=== PATIENT | female | born 1955 | race Caucasian/White ===

== ENCOUNTER 2020-04-27 15:41 | Outpatient (CLI) | payer MEDICARE, SELFPAY ==
--- NOTE | ~2020-04-27 | MM_ITS ---
EXAMINATION: MM screening luz BI w ade HISTORY: Screening mammogram TECHNIQUE: Craniocaudal and mediolateral oblique 3-D tomosynthesis images were obtained and synthetic 2-D images were generated. Bilateral rotated lateral cc views. CAD analysis was submitted and interp reted. COMPARISON: 04/06/2019, 11/27/2017, 10/02/2016 bilateral digital screening mammogram examinations BREAST PARENCHYMAL COMPOSITION: There are scattered areas of fibroglandular density. FINDINGS: There is no evidence of suspicious mass, calcification, or architectural distortion to sugg est malignancy in either breast. There has been no suspicious interval change. IMPRESSION: 1. No mammographic evidence of malignancy. 2. Recommend routine screening mammography in one year. BI-RADS Category 1: Negative Reviewed, dictated and finalized at location A.
== END 2020-04-27 15:42 | disposition home or self-care (01) ==
PROVIDERS: PCP Family Medicine; Visit Provider Family Medicine
DX: Z12.31 Encounter for screening mammogram for malignant neoplasm of breast (principal)
CPT/HCPCS: 77063; 77067

== ENCOUNTER 2020-05-03 12:40 | Outpatient (CLI) | payer MEDICARE, SELFPAY ==
--- NOTE | ~2020-05-03 | DEXA_ITS ---
Bone Density Report Name: Marisa Jaquez Age: 65 Sex: Female Ethnicity: White Date of : 1955 Indication: postmenopausal; Referring Provider: Sanam Wall Study: Bone densitometry was performed. Exam Date: May 03, 2020 Accession number: [id number] Bone Density: Region BMD T-score Z-score Classification AP Spine (L1-L4) 1.222 1.6 3.5 Normal Femoral Neck (Left) 0.734 -1.0 0.6 Normal Total Hip (Left) 0.921 -0.2 1.2 Normal Total Hip Bilateral Avg 0.893 -0.4 0.9 Normal Femoral Neck (Right) 0.705 -1.3 0.3 Osteopenia Total Hip (Right) 0.864 -0.6 0.7 Normal World Health Organization criteria for BMD impression classify patients as: Normal (T-score at or above -1.0), Osteopenia (T-score between -1.0 and -2.5), or Osteoporosis (T-score at or below -2.5). 10-year Fracture Risk(1): Major Osteoporotic Fracture 8.7% Hip Fracture 0.9% Reported Risk Factors: [place] (), Neck BMD=0.705, BMI=29.7 (1) FRAX(R) Version 3.08. Fracture probability calculated for an untreated patient. Fracture probability may be lower if the patient has received treatment. Previous Exams: Region Exam Age BMD T-score BMD Change BMD Change Date g/cm2 vs Baseline vs Previous AP Spine(L1-L4) 05/03/2020 65 1.222 1.6 -0.069(-5.4%)# -0.056(-4.4%)# 03/12/2013 57 1.279 2.1 -0.013(-1.0%)# -0.090(-6.6%)# 07/01/2009 54 1.368 2.9 0.077(5.9%)* 0.052(3.9%)* 02/22/2006 50 1.317 2.5 0.025(1.9%)* 0.025(1.9%)* 02/12/2002 46 1.292 2.2 Total Hip(Left) 05/03/2020 65 0.921 -0.2 -0.086(-8.5%)# -0.066(-6.7%)# 03/12/2013 57 0.986 0.4 -0.020(-2.0%)# -0.034(-3.3%)# 07/01/2009 54 1.020 0.6 0.014(1.4%) -0.004(-0.4%) 02/22/2006 50 1.024 0.7 0.018(1.8%) 0.018(1.8%) 02/12/2002 46 1.006 0.5 Total Hip(Right) 05/03/2020 65 0.864 -0.6 -0.128(-12.9%) -0.050(-5.4%)# 03/12/2013 57 0.914 -0.2 -0.078(-7.9%)# -0.114(-11.1%) 07/01/2009 54 1.028 0.7 0.035(3.6%)* 0.026(2.6%) 02/22/2006 50 1.002 0.5 0.010(1.0%) 0.010(1.0%) 02/12/2002 46 0.992 0.4 *Denotes significance at 95% confidence level, LSC for AP Spine = 0.022 g/cm2, LSC for Total Hip = 0.027 g/cm2 Clinical Information Provided by Patient: Has used the following medications: Vitamin D, Calcium Patient maximum height was 67 Menopause Age: 53 Does not regularly consume dairy products Onset of menses at age 14 Number of children 2
== END 2020-05-03 12:41 | disposition home or self-care (01) ==
LOC: ANHIMG 12:42
PROVIDERS: PCP Family Medicine; Visit Provider Physician Assistant
DX: Z78.0 Asymptomatic menopausal state (principal); M85.851 Other specified disorders of bone density and structure, right thigh
CPT/HCPCS: 77080

== ENCOUNTER 2021-08-03 08:24 | Outpatient (CLI) | payer MEDICARE, SELFPAY ==
--- NOTE | ~2021-08-03 | MR_ITS ---
EXAMINATION: MR brain/brain stem wo/w con DATE: 08/03/2021 10:19 INDICATION: Right arm weakness. Right-sided hearing loss. TECHNIQUE: Magnetic resonance imaging (MRI) of the brain and brainstem was performed without and with 15 mL MultiHance intravenous co Sequences included sagittal and axial T1-weighted FSE, axial diffusi on-weighted FS EPI, axial T2*-weighted GRE, axial T2-weighted FLAIR Propeller, and axial T2-weighted Propeller. Postcontrast sequences included axial and coronal T1-weighted FSE. Apparent diffusion coef ficient (ADC) maps were created. COMPARISON: None. FINDINGS: There are scattered areas of nonspecific increased T2-weighted signal intensity in the cere bral white matter, which is within normal limits for the patient's age. 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 There is no intracranial hemorrhage, acute infarction, or abnormal intracranial m ass lesion. The ventricles are normal in size. There are bilateral mastoid effusions. There is an eff usion of the right petrous apex. The orbits are normal. There is mucosal thickening in the paranasal sinuses. IMPRESSION: 1. 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 2. Bilateral mastoid effusions. Effusion of the right petrous apex. Reviewed, dictated and finalized at location A.
[2021-08-03 09:55] LABS: Estimated Glomerular Filt Rate 49
== END 2021-08-03 08:25 | disposition home or self-care (01) ==
PROVIDERS: PCP Family Medicine; Visit Provider Physician Assistant
DX: R53.1 Weakness (principal); H74.8X3 Other specified disorders of middle ear and mastoid, bilateral; Z86.73 Personal history of transient ischemic attack (TIA), and cerebral infarction without residual deficits
CPT/HCPCS: 70553; A9577

== ENCOUNTER 2021-08-13 12:44 | Outpatient (CLI) | payer MEDICARE, SELFPAY | END 2021-08-13 12:45 | disposition home or self-care (01) | LOC: ANHAUDASC 12:45 | PROVIDERS: PCP Family Medicine; Visit Provider Otolaryngology | DX: H93.13 Tinnitus, bilateral (principal); H90.3 Sensorineural hearing loss, bilateral | CPT/HCPCS: 92557; 92567 ==

== ENCOUNTER 2021-08-27 08:53 | Outpatient (CLI) | payer MEDICARE, SELFPAY ==
--- NOTE | ~2021-08-27 | MM_ITS ---
EXAMINATION: MM screening [facility] BI w ade HISTORY: Screening mammogram TECHNIQUE: Craniocaudal and mediolateral oblique 3-D tomosynthesis images were obtained and synthetic 2-D images were generated. CAD analysis was submitted and interpreted. COMPARISON: 04/27/2020, 04/06/2019, 11/27/2017 BREAST PARENCHYMAL COMPOSITION: There are scattered areas of fibroglandular density. FINDINGS: There is no evidence of suspicious mass, calcification, or architectural distortion to sugg est malignancy in either breast. There has been no suspicious interval change. IMPRESSION: 1. No mammographic evidence of malignancy. 2. Recommend routine screening mammography in one year. BI-RADS Category 1: Negative Reviewed, dictated and finalized at location A.
== END 2021-08-27 08:54 | disposition home or self-care (01) ==
LOC: ANHIMG 08:55
PROVIDERS: PCP Family Medicine; Visit Provider Physician Assistant
DX: Z12.31 Encounter for screening mammogram for malignant neoplasm of breast (principal)
CPT/HCPCS: 77063; 77067

== ENCOUNTER 2022-05-26 18:14 | Emergency (ER) | payer MEDICARE, SELFPAY ==
[2022-05-26 18:22] VITALS: BP 126/84; PULSE 72; RESP 18; TEMP 37.4; O2SAT 99
[2022-05-26 18:26] VITALS: BP 126/84; PULSE 72; RESP 18; TEMP 37.4; O2SAT 99
--- NOTE | 2022-05-26 18:40 | ED.GENADULT ---
HPI - General Adult General Chief complaint: Eye Problems Stated complaint: Lt Eye Irritation History of Present Illness HPI narrative: Patient is a 67-year-old female who presents to the [facility] via POV for evaluation of a left eye problem that began today. She reports erythema and goopy drainage. Denies using OTC meds for symptoms. She does not identify alleviating or aggravating factors. Patient does not wear any form of corrective lenses. Denies known exposure to sick contacts Related Data Home Medications Medication Instructions Recorded Confirmed cholecalciferol (vitamin D3) 50 50 mcg PO BID 12/25/21 05/26/22 mcg (2,000 unit) capsule Allergies Allergy/AdvReac Type Severity Reaction Status Date / Time No Known Allergies Allergy Verified 05/26/22 18:26 Review of Systems Review of Systems: Pertinent negatives injury, fever, chills, sweats, malaise, headache, ear pain/drainage, rhinorrhea, sinus problems, lymphadenopathy, vision changes, dry eyes, eye pain, foreign body sensation, photophobia, chest pain, heart palpitations/murmurs, cough, and shortness of breath. PMFSH Past Medical History Medical History (Updated 05/26/22 @ 18:43 by DANIEL Sutton, ) Hepatitis C antibody test negative (05/01/20) Hyperlipidemia Hypertension Surgical History Surgical History Hx of cholecystectomy (~1983) Family History Family History Father Diabetes mellitus, Onset Age: 54 Family history of malignant neoplasm of brain Mother Patient's mother is , Onset Age: 55 Diabetes mellitus Grandparent Diabetes mellitus Social History Social History Smoking status: Never smoker Alcohol intake: never Comments I have reviewed and agree with the patient's past medical, surgical, social, and family hx as documented by the RN. There is no relevant family history pertinent to the presenting complaint. Exam Narrative: GENERAL: Well-appearing, well-nourished, and in no acute distress. HEAD: Normocephalic, atraumatic. No sinus tenderness or facial swelling appreciated. EYES: PERRLA and EOMI. No evidence of swelling. Periorbital are is without erythema, swelling, pain, and warmth. Left upper and lower eyelids are mildly edematous. Right eyelids and lashes are normal. Bilateral sclera are injected. Left conjunctiva with moderate erythema and mucopurulent discharge. ENT: Nares clear, no rhinorrhea or epistaxis. Bilateral turbinates without erythema/ swelling. Mucous membranes moist and pink. Uvula is midline without erythema and swelling. No evidence of petechial rash, cobblestoning, lesions, ulcers, erythema, swelling, exudates, peritonsillar abscess, tenting, or drooling. Breath odor and voice normal. NECK: Supple. No Lymphadenopathy or nuchal rigidity appreciated. CHEST: Bilateral lung farrell are clear to auscultation. No respiratory distress. No evidence of cough or pleuritic cp upon examination. HEART: Regular rate and rhythm. No murmur, gallop, or rub heard. EXTREMITIES: Normal range of motion. No edema. SKIN: Warm, dry, no rash. NEURO: No focal deficits. Alert and oriented x3. Patient denies trauma, surgery, starvation, fatty foods, inadequate fluid intake, alcohol consumption, thiazide and loop diuretics, low-dose aspirin, allpurinol, and uricosuric agents. Pertinent negatives: fever, rash, numbness, tingling, loss of sensation, deformity, decreased ROM, weakness, difficulty with gait, nausea, vomiting, lymphadenopathy, sob, chest pain, heart palpitations, and heart murmurs. Course Course Level of Care: Express Care Visit Vital Signs Vital signs: Vital Signs Temperature 99.3 F 05/26/22 18: Pulse Rate 72 05/26/22 18: Respiratory Rate 18 05/26/22 18: Blood Pressure 126/84 05/26/22 18:22
== END 2022-05-26 18:38 | disposition home or self-care (01) ==
PROVIDERS: Emergency Provider Nurse Practitioner Family; PCP Family Medicine
DX: H10.32 Unspecified acute conjunctivitis, left eye (principal); E78.5 Hyperlipidemia, unspecified; I10 Essential (primary) hypertension
CPT/HCPCS: 99213; G0463

== ENCOUNTER 2022-08-02 12:28 | Outpatient (CLI) | payer MEDICARE, SELFPAY ==
--- NOTE | ~2022-08-02 | DEXA_ITS ---
Bone Density Report Name: AMBER JOHN Age: 67 Sex: Female Ethnicity: White Date of : 1955 Indication: postmenopausal; screening for osteoporosis; height loss; Referring Provider: ALEXANDRA YU Study: Bone densitometry was performed. Exam Date: August 02, 2022 Accession number: [id number] Bone Density: Region BMD T-score Z-score Classification AP Spine(L1-L4) 1.232 1.7 3.7 Normal Femoral Neck (Left) 0.737 -1.0 0.7 Normal Total Hip (Left) 0.906 -0.3 1.2 Normal Femoral Neck (Right) 0.736 -1.0 0.7 Normal Total Hip (Right) 0.817 -1.0 0.4 Normal Total Hip Mean 0.862 -0.7 0.8 Normal World Health Organization criteria for BMD impression classify patients as: Normal (T-score at or above -1.0), Osteopenia (T-score between -1.0 and -2.5), or Osteoporosis (T-score at or below -2.5). 10-year Fracture Risk: FRAX not reported because: All T-scores for Spine Total, Hip Total, Femoral Neck at or above -1.0 Previous Exams: Region Exam Age BMD T-score BMD Change BMD Change Date g/cm2 vs Baseline vs Previous AP Spine (L1-L4) 08/02/2022 67 1.232 1.7 0.010 (0.8%) 0.010 (0.8%) 05/03/2020 65 1.222 1.6 Total Hip(Left) 08/02/2022 67 0.906 -0.3 -0.015 (-1.6%) -0.015 (-1.6%) 05/03/2020 65 0.921 -0.2 Total Hip(Right) 08/02/2022 67 0.817 -1.0 -0.047 (-5.4%) -0.047 (-5.4%) 05/03/2020 65 0.864 -0.6 *Denotes significance at 95% confidence level, LSC for AP Spine = 0.022 g/cm2, LSC for Total Hip = 0.027 g/cm2 Clinical Information Provided by Patient: Has used the following medications: Vitamin D, Calcium Patient maximum height was 68 Menopause Age: 53 Onset of menses at age 14 Number of children 2 Impression: The patient has normal bone mass. The BMD for the Total Hip(Right) decreased, changing by -5.4% since the last DXA exam. Discussion: BONE DENSITY IS ABOVE THE MINIMUM DESIRABLE LEVEL AT ALL SKELETAL SITES TESTED. This patient?s bone mineral density is above the minimum desirable level (T-score -1.0 or better) at all sites measured. The patient should follow a healthful lifestyle (good nutrition with adequate calcium and vitamin D, and appropriate weight-bearing exercise). Follow-Up: Consider repeating this study in 3 to 4 years to reassess this patient's status, or sooner if there is some new clinical indication. Reported by: GOGO on 08/02/2022 12:58:00 PM.
== END 2022-08-02 12:29 | disposition home or self-care (01) ==
LOC: ANHIMG 12:29
PROVIDERS: PCP Family Medicine; Visit Provider Family Medicine
DX: Z78.0 Asymptomatic menopausal state (principal)
CPT/HCPCS: 77080

== ENCOUNTER → 2023-02-27 09:48 | Outpatient (CLI) | payer MEDICARE, SELFPAY ==
--- NOTE | ~2023-02-27 | XR_ITS ---
EXAMINATION: XR foot RT min 3V DATE: 02/27/2023 09:57 INDICATION: Painful lump of the foot TECHNIQUE: Dorsoplantar, lateral, and 2 oblique views of the right foot were obtained. COMPARISON: None. FINDINGS: Bone alignment is normal. There is no fracture. 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 A posterior calcaneal enthesophyte is noted. The soft tissues are unremarka ble. IMPRESSION: 1. Posterior calcaneal enthesophyte. No acute osseous abnormality. Reviewed, dictated and finalized at location L.
== END ==
PROVIDERS: PCP Family Medicine; Visit Provider Family Medicine
DX: M79.671 Pain in right foot (principal); M77.31 Calcaneal spur, right foot
CPT/HCPCS: 73630

== ENCOUNTER 2023-06-02 07:42 | Outpatient (CLI) | payer MEDICARE, SELFPAY | END 2023-06-02 07:43 | disposition home or self-care (01) | LOC: ANHAUDASC 07:44 | PROVIDERS: PCP Family Medicine; Visit Provider Nurse Practitioner | DX: H90.3 Sensorineural hearing loss, bilateral (principal) | CPT/HCPCS: 92557; 92567 ==

== ENCOUNTER 2023-08-04 08:32 | Outpatient (CLI) | payer MEDICARE, SELFPAY ==
--- NOTE | ~2023-08-04 | MM_ITS ---
EXAMINATION: MM screening luz BI w ade HISTORY: Screening mammogram TECHNIQUE: Craniocaudal and mediolateral oblique 3-D tomosynthesis images were obtained and synthetic 2-D images were generated. CAD analysis was submitted and interpreted. COMPARISON: 08/27/2021, 04/27/2020, 04/06/2019 bilateral screening mammogram examinations BREAST PARENCHYMAL COMPOSITION: There are scattered areas of fibroglandular density. FINDINGS: There is no evidence of suspicious mass, calcification, or architectural distortion to sugg est malignancy in either breast. There has been no suspicious interval change. IMPRESSION: 1. No mammographic evidence of malignancy. 2. Recommend routine screening mammography in one year. BI-RADS Category 1: Negative Reviewed, dictated and finalized at location A.
== END 2023-08-04 08:33 | disposition home or self-care (01) ==
PROVIDERS: PCP Family Medicine; Visit Provider Family Medicine
DX: Z12.31 Encounter for screening mammogram for malignant neoplasm of breast (principal)
CPT/HCPCS: 77063; 77067

== ENCOUNTER 2023-08-26 10:17 | Outpatient (CLI) | payer MEDICARE, SELFPAY ==
[2023-08-26 10:57] LABS: Appearance Urine Clear (Clear); Bacteria Urine None Seen /hpf; Bilirubin Urine Negative (Negative); Blood Urine Negative (Negative); Color Urine Yellow (Yellow); Glucose Urine UA Negative (Negative); Ketones Urine Negative (Negative); Leukocyte Esterase Ur 1+ LEU/UL (Negative); Need Manual Microscopic Reviewed; Nitrate Urine Negative (Negative); Non Pathogenic Casts 0-2; Protein Urine Negative (Negative); RBC Urine 0-2 /hpf (0-2); Specific Grav Ur 1.012 (1.001-1.035); Squamous Epithelial Cell Urine Occasional /hpf (Few); Urobilinogen Urine 0.2 mg/dL (<2.0); WBC Urine 0-5 /hpf; pH Urine 7.5 (5.0-9.0)
[2023-08-26 10:58] LABS: Add Urine Microscopic? YES
--- NOTE | 2023-08-26 11:26 | ECG_ITS ---
Measurements Intervals [place] Rate: 49 P: 32 UT: 177 QRS: -3 QRSD: 91 T: 35 QT: 451 QTc: 411 Interpretive Statements SINUS BRADYCARDIA COMPARED TO ECG 06/08/2019 15:57:04 SINUS BRADYCARDIA NOW PRESENT Electronically Signed On 08-26-2023 12:44:26 CDT by Reji Hennessy M.D.
== END 2023-08-26 10:18 | disposition home or self-care (01) ==
PROVIDERS: PCP Family Medicine; Visit Provider Orthopaedic Surgery
DX: M17.11 Unilateral primary osteoarthritis, right knee (principal); I12.9 Hypertensive chronic kidney disease with stage 1 through stage 4 chronic kidney disease, or unspecified chronic kidney disease; N18.30 Chronic kidney disease, stage 3 unspecified
CPT/HCPCS: 81001; 93005

== ENCOUNTER 2023-09-04 09:51 | Outpatient (CLI) | payer MEDICARE, SELFPAY ==
[2023-09-04 11:16] LABS: Urine Cotinine NEGATIVE
[2023-09-04 11:23] LABS: INR 1.1; Prothrombin Time 14.2 Seconds (11.1-14.7)
[2023-09-04 11:24] LABS: Partial Thromboplastin Time 28.3 SECONDS (22.3-36.8)
[2023-09-04 11:41] LABS: Hemoglobin A1C 5.2 % (<5.7)
== END 2023-09-04 09:52 | disposition home or self-care (01) ==
LOC: ANHSURGERY 09:55
PROVIDERS: PCP Family Medicine; Visit Provider Orthopaedic Surgery
DX: M17.11 Unilateral primary osteoarthritis, right knee (principal); Z01.818 Encounter for other preprocedural examination
CPT/HCPCS: 80307; 83036; 85610; 85730; 86850; 86900; 86901; 87081

== ENCOUNTER 2023-09-17 01:21 | Day surgery (SDC) | payer MEDICARE, SELFPAY ==
[2023-09-04 10:01] VITALS: BMI 26.9
--- NOTE | 2023-09-04 10:17 | PC.NURSE ---
Report to the Outpatient Waiting Room, entrance under the green pavilion located off [facility], at time _0830 on date __09/17/23 . Planned Procedure Time: __1030 . Time changes happen often and if your time is changed the preop area will call you the afternoon before. - You and your visitor will be asked to self-screen and do not enter if you have any COVID symptoms. - A mask is optional within the hospital at this time. Patients may have clear liquids (water, carbonated beverages, clear teas, apple juice) until 3 hours prior to surgery with a maximum of 20 ounces. - No food from midnight until time of surgery - Infants may have breast milk until 4 hours before surgery, formula 6 hours prior to surgery. - Children will be allowed to drink immediately following surgery. If applicable, please bring a bottle or sippy cup to assist with drinking. Juice, water, soda, and popsicles are readily available. For infants on formula, please bring formula the day of surgery. Pacifiers are allowed. Take the following medications with a SIP of water the morning of surgery: ____AMLODIPINE,ESCITALOPRAM DO NOT STOP ANY OF YOUR OTHER PRESCRIPTION MEDICATIONS PRIOR TO SURGERY ?EXCEPT THE FOLLOWING Medications to discontinue per physician ____NAPROXEN PER DR BURNS, ALL VITAMINS AND SUPPLEMENTS 3 DAYS PRE OP LAST DOSE 09/13/23__ Please no make-up, nail irish, hairspray, perfume, deodorant, or body powder the day of surgery. No jewelry (including any body piercings) or valuables the day of surgery, leave them at home. Please take a shower or bath the night before, or the morning of, surgery with an antibacterial soap. Wear comfortable, loose fitting clothing. Children are encouraged to wear pajamas. - Jewelry must be removed prior to entering the operating room. Rings and piercings that are not removed may be cut off. - The hospital will not accept responsibility for valuables. - Please leave all valuables, including medications, at home the day of surgery. If you are going home after surgery, a licensed deliver driver must drive you home. - NO public transportation without another adult if you receive anesthesia. - We recommend that an adult stay with you for 24 hours following discharge. - We also recommend that you do not drive, make important decision, drink alcoholic beverages, or take any drugs that were not prescribed by your health care provider for at least 24 hours after your discharge time. Follow any additional instructions given to you from your surgeon. If you or anyone in your household have experienced Covid symptoms in the past week, please notify your surgeon or the nurse liaison at the phone number below for possible testing. VERBAL AND WRITTEN instructions given to ___PATIENT and asked if any additional questions and then verbalized understanding. Patient advised to call surgeon office or pre surgery nurse liaison [phone] if any additional questions.
[2023-09-04 10:36] VITALS: BP 133/77; PULSE 60; RESP 18; TEMP 36.6; O2SAT 99
--- NOTE | 2023-09-16 13:28 | WPDANESEPPF ---
Anes - Initial Pre Proc Eval Procedure: Operation Date: 09/17/23 10:30 Proposed Procedures p Right Total Knee Arthroplasty - Rolo Villa MD Date/Time: 09/16/23 13:28 Surgeon: Rolo Villa MD Pre Op Diagnosis: right knee DJD Patient Data Age: 68 Gender: F Height: 1.7 m Weight: 78 kg Last Vital Signs Temp 36.6 C 09/04/23 10:36 Pulse 60 09/04/23 10:36 Resp 18 09/04/23 10:36 BP 133/77 09/04/23 10:36 Pulse Ox 99 09/04/23 10:36 O2 Del Method Room Air 09/04/23 10:36 Allergies Allergy/AdvReac Type Severity Reaction Status Date / Time No Known Allergies Allergy Verified 09/17/23 09:26 Home Medications Medication Instructions Recorded Confirmed Type atorvastatin 10 mg tablet See Rx Instructions .Route 05/24/22 09/17/23 Rx .COMPLEX #90 tabs cholecalciferol (vitamin D3) 50 50 mcg PO DAILY 07/01/22 09/17/23 History mcg (2,000 unit) capsule amlodipine 2.5 mg tablet 2.5 mg PO DAILY #90 tabs 08/07/22 09/17/23 Rx escitalopram oxalate 20 mg tablet 20 mg PO DAILY #90 tabs 03/27/23 09/17/23 Rx bisoprolol 10 See Rx Instructions .Route 05/13/23 09/17/23 Rx mg-hydrochlorothiazide 6.25 mg .COMPLEX #90 tabs tablet naproxen 500 mg tablet See Rx Instructions .Route 07/25/23 09/17/23 Rx .COMPLEX #60 tabs latanoprost 0.005 % eye drops 1 drp EACH EYE HS 09/03/23 09/17/23 History calcium carb-Ca gluc 500 mg 1 tablet PO DAILY 09/04/23 09/17/23 History calcium-magnesium ox-Mg gluc 250 mg tablet (Calcium Magnesium) chlorhexidine gluconate 4 % 1 applic topical DAILY #237 mL 09/08/23 09/17/23 Rx topical liquid (Hibiclens) Patient hx anesthesia problems: none Family hx anesthesia problems: none Results Review: All pre-operative results and documents have been reviewed as part of the pre-operative evaluation. [facility] Past Medical History Medical History (Updated 09/16/23 @ 13:29 by Chase Amin DO) Chronic kidney disease, stage 3 (moderate) Glaucoma Hyperlipidemia Hypertension Surgical History Surgical History (Updated 09/08/23 @ 10:42 by Michelle Martinez [facility]) History of 2 sections History of knee surgery Hx of cholecystectomy (~1983) Family History Family History Father Diabetes mellitus, Onset Age: 54 Family history of malignant neoplasm of brain Mother Patient's mother is , Onset Age: 55 Diabetes mellitus Grandparent Diabetes mellitus Social History Social History (Updated 09/08/23 @ 10:43 by Michelle Martinez [facility]) Smoking status: Never smoker Additional smoking assessment comments: DENIES ANY FORM OF TOBACCO USE Alcohol intake: current Drinks per week: 1 Lack of Transportation: No Lack of Food: Never True Current Housing: I Have Housing Concerned About Future Housing: No Difficulty Paying Gas/Electric Bills: No Difficulty Paying for Meds: No Currently Unemployed: No Education: Bachelor's Degree Difficulty w/ Childcare or Family Care: No Living arrangements: with family Occupation/Education: retired Gender identity (if verbalized by the patient): Female Spiritual care concerns: No Anes - Eval Final PreProcedure Day of Procedure 09/16/23 13:28 Patient weight: overweight Heart: regular rate and rhythm Lungs: clear to auscultation Airway: Mallampati scale class II Neurological: alert and oriented Last oral intake: >/= 8 hours ASA classification: III Emergent: no Anesthetic plan: proceed Anesthesia type and monitoring: general LMA and standard monitoring Results Review: All pre-operative results and documents have been reviewed as part of the pre-operative evaluation. Informed Consent: The patient's anesthetic plan and its attendant risks and benefits were discussed with the patient/family/POA. Questions were solicited and answers provided to the satisfaction of the patient/family/POA.
[2023-09-17] VITALS (16 sets, daily range): BP systolic 117–176; BP diastolic 64–96; PULSE 58–90; RESP 12–20; TEMP 36.4–37.1; O2SAT 93–100
--- NOTE | ~2023-09-17 | XR_ITS ---
EXAMINATION: [id number] DATE: 09/17/2023 13:56 CDT INDICATION: Left knee arthroplasty TECHNIQUE: 2 views left knee FINDINGS: There is a left total knee arthroplasty in expected position. Subcutaneous gas with fluid and air in the joint and overlying skin jo are consistent with recent surgery. No evidence of pe riprosthetic fracture. IMPRESSION: 1. Recent left total knee arthroplasty. Reviewed, dictated and finalized at location B.
--- NOTE | 2023-09-17 07:21 | WPDHPUPDATE1 ---
History and Physical Update Update Date/Time: 09/17/23 07:21 History and Physical has been reviewed, including an updated exam of the patient. There are NO changes in the patient's condition. Risks, benefits, and alternatives have been discussed and questions answered. Patient agrees to proceed with procedure.
[2023-09-17] MEDS: ACETAMINOPHEN 500 MG TABLET 1000 MG PO (09:32)
[2023-09-17] MEDS: LACTATED RINGERS 1,000 ML 30 ML IV CONT ×2 (09:45→12:58)
--- NOTE | 2023-09-17 09:53 | WPDANESPNB ---
Anes - Peripheral Nerve Block Date/Time: 09/17/23 09:53 I have discussed with the patient/family/POA the placement of a peripheral nerve block for post-operative pain management, including associated risks, benefits, complications, and side effects. Alternative methods of post-operative analgesia were detailed. Questions were solicited and answers provided to the satisfaction of the patient/family/POA. Time-Out: A pre-procedural Time-Out was completed immediately before starting the procedure and confirmed: Patient Identification, Site, Procedure, Patient Position and the Availability of Requisite Equipment. Clinical Indications: Acute post-operative pain management requested by the operative surgeon. Nerve Block Insertion Note Anes-nerve block: adductor canal right Patient position: supine Skin prep: chlorhexidine Needle: 22 gauge, stimulating, insulated echogenic needle. Needle length: 80 mm Technique: ultrasound Injectate: bupivacaine 0.5% with epi 5 mcg/ml (30cc - no epi) Observations: tolerated well Complications: none Procedure start time:: 1033 Procedure end time:: 1037
[2023-09-17] MEDS: TRANEXAMIC ACID 1,000MG/ISO100 1,000 MG/100 ML BAG 200 MG IVPB (10:23)
[2023-09-17] MEDS: ceFAZolin 2 GM/D5W 50 ML 2 GM/50 ML BAG IVPB ×2 (10:43→17:49)
[2023-09-17] MEDS: GENTAMICIN BONE CEMENT REFOBACIN 1 EACH TOPICAL (11:45)
[2023-09-17] MEDS: TRANEXAMIC ACID 1,000 MG/10 ML AMPUL 1000 MG IV PUSH (12:13)
--- NOTE | 2023-09-17 13:07 | W.PM.PROC2 ---
Procedure Note - Detailed Date of Procedure 09/17/23 Pre-op Diagnosis right knee DJD Post-op Diagnosis Same Procedure Performed R TKA Surgeon Rolo Villa MD Anesthesia General Description of Procedure THE RIGHT KNEE WAS PREPPED AND DRAPED IN THE STERILE FASHION. THERE WAS A 20 DEGREE FLEXION CONTRACTURE. A MIDLINE SKIN INCISION WAS MADE. A MEDIAL PARAPATELLAR ARTHROTOMY WAS MADE. THE PATELLA WAS EVERTED. THERE WAS TRICOMPARTMENT DJD. THERE WAS MINIMAL PATELLA DJD. AN INTRAMEDULLARY WILFREDO WAS PLACED IN THE FEMUR. A DISTAL FEMORAL CUT WAS MADE IN 5 DEGREES OF VALGUS REMOVING APPROXIMATELY 11 MM OF BONE FROM THE DISTAL FEMUR. THE FEMUR WAS SIZED TO 67.5. A 67.5 FEMORAL CUTTING BLOCK WAS PLACED IN 3 DEGREES OF EXTERNAL ROTATION AND IN ALIGNMENT WITH DEREK'S LINE AND THE TRANSEPICONDYLAR AXIS. ANTERIOR POSTERIOR AND CHAMFER CUTS WERE MADE. THE CUTS WERE EXCELLENT. NEXT AN INTRAMEDULLARY CUTTING GUIDE WAS PLACED IN THE TIBIA. A TRANS TIBIAL CUT WAS MADE ALONG THE LONG AXIS OF THE TIBIA. APPROXIMATELY 10 MM OF BONE WAS REMOVED FROM THE HIGH SIDE OF THE TIBIA. THE TIBIA WAS THEN PLANED TO A SMOOTH SURFACE. POSTERIOR FEMORAL OSTEOPHYTES WERE REMOVED FROM THE FEMORAL CONDYLES. A 75 TIBIAL TRIAL WAS PLACED IN ALIGNMENT WITH THE 1/3 MEDIAL ASPECT OF THE TIBIAL TUBERCLE. THEN A 67.5 FEMORAL TRIAL COMPONENT WAS PLACED. BOTH HAD EXCELLENT FITS. EVENTUALLY A 10 MM CR POLYETHYLENE TRIAL COMPONENT WAS PLACED. THE KNEE WAS TAKEN THROUGH A RANGE OF MOTION. THE KNEE CAME OUT TO FULL EXTENSION. THERE WAS NO ABNORMAL TILT TO THE PATELLA. THERE WAS GOOD A/P AND VARUS/VALGUS STABILITY. THERE WAS NO EXCESSIVE ROLL BACK WITH FLEXION. THE TRIAL COMPONENTS WERE REMOVED. THEN A 67.5 FEMORAL COMPONENT AND 75 TIBIAL COMPONENT WITH A 10 CR POLYETHYLENE COMPONENT WERE CEMENTED INTO PLACE. ONCE THE CEMENT WAS HARD THE KNEE WAS TAKEN THROUGH A ROM AGAIN AND FOUND TO BE STABLE WITH NO PATELLA TILT NO EXCESSIVE ROLL BACK WITH FLEXION AND GOOD STABILITY WITH COMPLETE AND FULL EXTENSION. THE KNEE WAS IRRIGATED WITH STERILE BETADINE AND WATER FOR ABOUT 3 MINUTES. THE BLEEDERS WERE CAUTERIZED. THE ARTHROTOMY WAS REPAIRED WITH NUMBER 1 VICRYL. THE SUB CUTANEOUS LAYER WITH 2-0 VICRYL AND THE SKIN WITH LISSETH. THE WOUND WAS WASHED AND A STERILE DRESSING WAS APPLIED. PATIENT WAS EXTUBATED. Estimated Blood Loss -125.0 Pathology None sent Complications No immediate complications Condition Stable Disposition PACU
[2023-09-17] MEDS: fentaNYL CITRATE INJ (*CRX) 100 MCG/2 ML VIAL 25 MCG IV PUSH ×8 (13:14→14:04)
[2023-09-17] MEDS: KETOROLAC 30 MG/ML VIAL (*BKC) IV PUSH (13:40)
--- NOTE | 2023-09-17 15:07 | ADMGEN ---
This patient, Marisa Jaquez, was admitted to Medical Room 258-01. Patient/family oriented to hospital policies and general routines including ID bracelet, bed and alarms, visiting hours, pain management, procedures, bathroom and other care routines, personal items, smoking policy, room service/diet, and visiting hours. Information on how to activate the Rapid Response Team has been discussed. Patient/Family are encouraged to report perceived risks to care and to ask questions if they do not understand what they are told or what they should do.
[2023-09-17] MEDS: KETOROLAC 15 MG/ML VIAL (*BKC) IV PUSH ×2 (15:24→17:49)
[2023-09-17] MEDS: SENNA/DOCUSATE SODIUM TABLET 2 TAB PO (17:48)
[2023-09-17] MEDS: LATANOPROST 0.005% OP SOLN 2.5 ML BTL 1 DROP EACH EYE (21:05)
[2023-09-17] MEDS: FAMOTIDINE 20 MG TABLET PO (21:06)
[2023-09-17] MEDS: ASPIRIN 325 MG ENTERIC TABLET PO (21:06)
[2023-09-18 00:19] VITALS: BP 134/82; PULSE 83; RESP 14; TEMP 36.4; O2SAT 99
[2023-09-18] MEDS: oxyCODONE/ACETAMINOPHEN (*CRX) 5-325 MG TABLET 1 TABLET PO (00:20)
[2023-09-18] MEDS: KETOROLAC 15 MG/ML VIAL (*BKC) IV PUSH ×2 (00:21→06:01)
[2023-09-18] MEDS: ceFAZolin 2 GM/D5W 50 ML 2 GM/50 ML BAG IVPB ×2 (00:23→11:03)
[2023-09-18 05:03] LABS: Basophils Percent Auto 0.2 % (0.2-1.2); Hematocrit 34.3 % (37.0-47.0); Hemoglobin 10.6 g/dL (12.0-15.0); Immature Granulocyte Absolute 0.05 K/mm3 (0.00-0.031); Immature Granulocyte Percent A 0.4 % (0-0.5); Lymphocytes Absolute Auto 1.06 K/mm3 (0.9-3.2); Lymphocytes Percent Auto 8.5 % (18.3-44.2); Mean Corpuscular HGB Conc 30.9 g/dl (32-36); Mean Corpuscular Hemoglobin 29.9 pg (26-34); Mean Corpuscular Volume 96.9 fl (80-100); Mean Platelet Volume 9.5 fl (7.4-10.4); Monocytes Absolute Auto 0.9 K/mm3 (0.1-0.6); Monocytes Percent Auto 6.8 % (2.6-8.5); Neutrophils Absolute Auto 10.5 K/mm3 (1.3-6.7); Neutrophils Percent Auto 84.1 % (45.5-73.1); Platelet Count Result 211 k/mm3 (150-375); Red Blood Count 3.54 M/mm3 (4.2-5.4); Red Cell Distribution Width 12.1 % (11.5-14.5); White Blood Count 12.5 K/mm3 (4.5-10.0)
[2023-09-18 05:14] LABS: Anion Gap 6 mmol/L (8-16); Blood Urea Nitrogen 17 mg/dL (7-17); Calcium 8.6 mg/dL (8.4-10.2); Carbon Dioxide 27 mmol/L (22-30); Chloride 101 mmol/L (98-107); Estimated CRCL calculation 41 ml/min; Estimated Glomerular Filt Rate 49; Glucose 116 mg/dL (65-110); Potassium 4.4 mmol/L (3.4-5.0); Sodium 134 mmol/L (137-145)
[2023-09-18 06:42] VITALS: BP 125/74; PULSE 78; RESP 16; TEMP 36.5; O2SAT 100
[2023-09-18 08:19] VITALS: BP 127/59; PULSE 73; RESP 18; TEMP 36.7; O2SAT 100
--- NOTE | 2023-09-18 09:23 | PM.PNORT ---
Progress Note: A&P Assessment and Plan (1) S/P total knee arthroplasty: Qualifiers: Laterality: right Qualified Code(s): Z96.651 - Presence of right artificial knee joint Code(s): Z96.659 - Presence of unspecified artificial knee joint Status: Acute Assessment and Plan: POD #1 : Right TKA Continue PT/OT. WBAT. Walker. HIGH FALL RISK. Continue pain control. Ice Knee. Protect skin. DVT prophylaxis with Aspirin. SCDs. Incentive Spirometry Use reviewed. Monitor Dressing. Change prior to discharge. Bowel Regimen. Dispo: Home with Home Health pending progress with PT/OT Time Spent With Patient Time: Reviewed postoperative labs, vitals, radiographs and assessment with attending MD, Dr. Villa. Agrees with current plan as indicated above. No further recommendations. Subjective Subjective Date/Time Seen: 09/18/23 09:23 Post Op day: 1 (Right TKA ) Interval history: POD #1: Right TKA Patient doing very well. Pain well controlled. Ready for discharge home this morning. No concerns. Review of Systems Review of Systems: All systems reviewed & are unremarkable except as noted in HPI and below Constitutional: Constitutional: Denies fever(s) and Denies headache(s) ENT: Denies headache(s) Cardiovascular: Cardiovascular: Denies chest pain, Denies diaphoresis, Denies palpitations and Denies dyspnea Respiratory: Respiratory: Denies dyspnea Gastrointestinal: Gastrointestinal: Denies abdominal pain, Denies constipation, Denies nausea and Denies vomiting Genitourinary: Genitourinary: Reports nocturia and Denies dysuria Musculoskeletal: Musculoskeletal: Reports arthralgias (Right Knee ) and Reports joint swelling (Right Knee ) Neurologic: Denies headache(s) Endocrine: Endocrine: Denies palpitations Exam Const: General: comfortable and no acute distress Resp: Effort & Inspection: normal respiratory effort Cardio: Rate: regular rate Rhythm: regular rhythm GI: GI Palp: Yes Soft to palpation, No Tenderness to palpation present (GI) and No Guarding due to palpation present (GI) Skin: General skin exam: wounds noted Wounds: wounds noted Other: Incision c/d/i. No surrounding redness/warmth. No hematoma. Mild ecchymosis. No wound dehiscence Neuro: Cognition (Neuro): normal cognition Other: NV intact aside from block. Moves toes. Sensation intact to light touch. +ankle dorsiflexion/plantarflexion. Extrem: Right lower extremity: normal to inspection, knee Details: tenderness (diffuse, mild ) Location: of the patella, swelling (diffuse, consistent with surgical intervention ), abnormal ROM Details: pain with active ROM during, pain with passive ROM during and with range as follows (limited due to recent surgical intervention ); able to extend lower leg actively and ecchymosis (mild ), lower leg (Negative Nish's Sign ) Details: normal to inspection; no erythema and no tenderness, ankle (+ankle dorsiflexion/plantarflexion ) Details: normal to inspection, no edema and normal ROM; no tenderness, no swelling and no ecchymosis and foot Details: normal capillary refill, normal to inspection, vascular exam Details: dorsalis pedis pulse present and motor-sensory exam Details: light-touch normal; no tenderness Left lower extremity: normal to inspection Psych: Mental Status: mental status grossly normal Objective Data Vital Signs Vital Signs: Vital Signs - 24 hr 09/17/23 10:06 09/17/23 12:58 09/17/23 13:10 Temperature 37.1 C 37.1 C Pulse Rate 58 L 90 84 Respiratory Rate 20 15 16 Blood Pressure 136/74 172/96 H 176/93 H Pulse Oximetry 99 100 99 Pulse Oximetry [At Rest After Therapy Session] Oxygen Delivery Room Air Simple Face Mask Simple Face Mask Oxygen Flow Rate 6 6 09/17/23 13:25 09/17/23 13:40 09/17/23 13:55 Temperature Pulse Rate 79 75 80 Respiratory Rate 12 12 12 Blood Pressure 151/93 H 156/89 H 141/92 H Pulse Oximetry 98 93 96 Pulse Oximetry [At Rest
--- NOTE | 2023-09-18 09:46 | PM.DS ---
DS: Admitting Diagnosis Discharge Date 09/18/23 Admitting Diagnosis Right Knee DJD DS: Discharge Diagnosis Discharge Diagnosis (1) S/P total knee arthroplasty: Qualifiers: Laterality: right Qualified Code(s): Z96.651 - Presence of right artificial knee joint Code(s): Z96.659 - Presence of unspecified artificial knee joint Status: Acute Assessment and Plan: POD #1 : Right TKA Continue PT/OT. WBAT. Walker. HIGH FALL RISK. Continue pain control. Ice Knee. Protect skin. DVT prophylaxis with Aspirin. SCDs. Incentive Spirometry Use reviewed. Monitor Dressing. Change prior to discharge. Bowel Regimen. Dispo: Home with Home Health pending progress with PT/OT DS: Summary Hospital Course Reason for hospitalization: Right TKA Hospital Course: 68 year old female admitted s/p Right TKA for postoperative medical management, pain control and mobilization with PT/OT. Patient progressed well with PT/OT. Pain and vitals remained stable throughout. The patient has been cleared to be discharged home with home health at this time. All discharge care instructions reviewed at depth. New medications reviewed. Follow up planned for 3 weeks in the outpatient orthopedic clinic with Dr. Villa. Dr. Villa verbalizes agreement with discharge plans. Status at Discharge Functional status at discharge: uses cane/walker Overall status at discharge: patient is progressing back to baseline Time Spent with Patient Time attestation: Total time spent providing and/or coordinating discharge services: Exam Const: General: comfortable and no acute distress Resp: Effort & Inspection: normal respiratory effort Cardio: Rate: regular rate Rhythm: regular rhythm Skin: General skin exam: wounds noted Wounds: wounds noted Other: Incision c/d/i. No surrounding redness/warmth. No hematoma. Mild ecchymosis. No wound dehiscence Neuro: Cognition (Neuro): normal cognition Other: NV intact aside from block. Moves toes. Sensation intact to light touch. +ankle dorsiflexion/plantarflexion. Extrem: Right lower extremity: normal to inspection, knee Details: tenderness (diffuse, mild ) Location: of the patella, swelling (diffuse, consistent with surgical intervention ), abnormal ROM Details: pain with active ROM during, pain with passive ROM during and with range as follows (limited due to recent surgical intervention ); able to extend lower leg actively and ecchymosis (mild ), lower leg (Negative Nish's Sign ) Details: normal to inspection; no erythema and no tenderness, ankle (+ankle dorsiflexion/plantarflexion ) Details: normal to inspection, no edema and normal ROM; no tenderness, no swelling and no ecchymosis and foot Details: normal capillary refill, normal to inspection, vascular exam Details: dorsalis pedis pulse present and motor-sensory exam Details: light-touch normal; no tenderness Left lower extremity: normal to inspection Psych: Mental Status: mental status grossly normal DS: Data Data Completed and Pending Labs on day of discharge: Labs from last 24 hours 09/18/23 04:41 WBC 12.5 H RBC 3.54 L Hgb 10.6 L Hct 34.3 L MCV 96.9 MCH 29.9 MCHC 30.9 L RDW 12.1 Plt Count 211 MPV 9.5 Immature Gran % (Auto) 0.4 Neut % (Auto) 84.1 H Lymph % (Auto) 8.5 L [place] % (Auto) 6.8 Eos % (Auto) 0.0 Baso % (Auto) 0.2 Lymph # (Auto) 1.06 [place] # (Auto) 0.9 H Eos # (Auto) 0.0 Baso # (Auto) 0.0 Abs Immat Gran (auto) 0.05 H Absolute Neuts (auto) 10.5 H Absolute Nucleated RBC 0.0 Nucleated RBC % 0.0 Sodium 134 L Potassium 4.4 Chloride 101 Carbon Dioxide 27 Anion Gap 6 L BUN 17 Creatinine 1.10 H Estim Creat Clear Calc 41 Estimated GFR 49 L Glucose 116 H Calcium 8.6 Discharge Plan Discharge Patient Disposition: Home Health Service Discharge Instructions: Post Op Total Knee Replacement Instructions Dr. Rolo Villa [phone] Your dressing will be
[2023-09-18] MEDS: FAMOTIDINE 20 MG TABLET PO (09:58)
[2023-09-18] MEDS: ASPIRIN 325 MG ENTERIC TABLET PO (09:58)
[2023-09-18] MEDS: ATORVASTATIN 10 MG TABLET BY MOUTH (09:58)
[2023-09-18] MEDS: SENNA/DOCUSATE SODIUM TABLET 2 TAB PO (09:58)
[2023-09-18] MEDS: amLODIPine BESYLATE 2.5 MG TABLET PO (09:58)
[2023-09-18] MEDS: CHOLECALCIFEROL 1,000 UNITS TABLET 2000 UNITS PO (09:58)
[2023-09-18] MEDS: ESCITALOPRAM OXALATE 10 MG TABLET 20 MG PO (09:59)
[2023-09-18] MEDS: polyethylene glycoL 3350 17 GM POWD.PACK PO (09:59)
--- NOTE | 2023-09-18 10:06 | P.PNAN_ITS ---
Anes - Prog Note Post-Op Date/Time: 09/18/23 10:06 Cardiovascular status: normal Respiratory status: normal Airway patency: baseline Mental status: baseline Post-Op hydration status: normal Vital Signs: Last Vital Signs Temp 98.1 F 09/18/23 08:19 Pulse 73 09/18/23 08:19 Resp 18 09/18/23 08:19 BP 127/59 L 09/18/23 08:19 Pulse Ox 100 09/18/23 08:19 O2 Del Method Room Air 09/18/23 08:52 O2 Flow Rate 2 09/17/23 15:19 Pain Score (VAS): 2 I/O: Intake & Output 09/17/23 09/18/23 09/18/23 23:59 07:59 15:59 Intake Total 720 450 476 Balance 720 450 476 Laboratory Tests 09/18/23 04:41 09/18/23 04:41 09/18/23 04:41 WBC 12.5 H RBC 3.54 L Hgb 10.6 L Hct 34.3 L MCV 96.9 MCH 29.9 MCHC 30.9 L RDW 12.1 Plt Count 211 MPV 9.5 Immature Gran % (Auto) 0.4 Neut % (Auto) 84.1 H Lymph % (Auto) 8.5 L [place] % (Auto) 6.8 Eos % (Auto) 0.0 Baso % (Auto) 0.2 Lymph # (Auto) 1.06 [place] # (Auto) 0.9 H Eos # (Auto) 0.0 Baso # (Auto) 0.0 Abs Immat Gran (auto) 0.05 H Absolute Neuts (auto) 10.5 H Absolute Nucleated RBC 0.0 Nucleated RBC % 0.0 Sodium 134 L Potassium 4.4 Chloride 101 Carbon Dioxide 27 Anion Gap 6 L BUN 17 Creatinine 1.10 H Estim Creat Clear Calc 41 Estimated GFR 49 L Glucose 116 H Calcium 8.6 Post-procedural complaints: none Patient Feedback: Patient satisfied with anesthetic care.pt verbalized good pain relief with pnv
--- NOTE | 2023-09-18 10:21 | PC.NURSE ---
On 09/18/23, the student, [Kash Sky], provided care and completed [facility] documentation on this patient. I have reviewed the student's documentation and agree with the findings.
== END 2023-09-18 11:40 | disposition home health service (06) ==
LOC: ANHSURGERY 08:19 → ANH2MED 14:38
PROVIDERS: PCP Family Medicine; Visit Provider Orthopaedic Surgery
PROC: (CPT 27447; principal; 2023-09-17 10:30)
DX: M17.11 Unilateral primary osteoarthritis, right knee (principal); G89.18 Other acute postprocedural pain; E78.5 Hyperlipidemia, unspecified; I12.9 Hypertensive chronic kidney disease with stage 1 through stage 4 chronic kidney disease, or unspecified chronic kidney disease; N18.30 Chronic kidney disease, stage 3 unspecified; H40.9 Unspecified glaucoma
CPT/HCPCS: 27447; 64447; 36415; 73560; 80048; 85025; 97110; 97116; 97161; 97165; A9270; C1713; C1776; J0171; J0690; J1100; J1885; J2250; J2270; J2405; J2704; J2795; J3010; J7120

== ENCOUNTER 2024-08-14 08:12 | Outpatient (CLI) | payer MEDICARE, SELFPAY ==
--- NOTE | ~2024-08-14 | MM_ITS ---
EXAMINATION: MM screening luz BI w ade HISTORY: Screening TECHNIQUE: Craniocaudal and mediolateral oblique 3-D tomosynthesis images were obtained and synthetic 2-D images were generated. CAD analysis was submitted and interpreted. COMPARISON: Comparison to multiple prior studies sequentially, with oldest reviewed study dated 07/2016. BREAST PARENCHYMAL COMPOSITION: Not dense: There are scattered areas of fibroglandular density. FINDINGS: There is a new mass in the lower outer quadrant of the right breast posterior third which i s partially obscured. The left breast is stable without evidence for malignancy. IMPRESSION: 1. New mass of the right breast in the lower outer quadrant posterior third. 2. Additional mammographic views and possible breast ultrasound are recommended. BI-RADS Category 0: Incomplete: Needs additional imaging evaluation. Reviewed, dictated and finalized at location B. IMPRESSION: 1. New mass of the right breast in the lower outer quadrant posterior third. 2. Additional mammographic views and possible breast ultrasound are recommended . BI-RADS Category 0: Incomplete: Needs additional imaging evaluation.
== END 2024-08-14 08:13 | disposition home or self-care (01) ==
LOC: ANHIMG 08:13
PROVIDERS: PCP Family Medicine; Visit Provider Nurse Practitioner
DX: N63.13 Unspecified lump in the right breast, lower outer quadrant (principal); Z12.31 Encounter for screening mammogram for malignant neoplasm of breast
CPT/HCPCS: 77063; 77067

== ENCOUNTER 2024-09-06 12:41 | Outpatient (CLI) | payer MEDICARE, SELFPAY ==
--- NOTE | ~2024-09-06 | MMUS_ITS ---
CORRECTED REPORT corrected examination description to include w ade JM 09/07/24 This report was recreated on 09/07/24. Original report was EXAMINATION: MM diagnostic luz RT w ade, US breast RT complete HISTORY: Follow-up right breast asymmetry TECHNIQUE: Additional 3-D tomosynthesis images of the right breast were performed and synthetic 2-D images were generated. CAD analysis was submitted and interpreted. High resolution right breast ultrasound was performed. COMPARISON: Comparison to multiple prior studies sequentially, with oldest reviewed study dated 11/27/2017. BREAST PARENCHYMAL COMPOSITION: Not dense: There are scattered areas of fibroglandular density. FINDINGS: MAMMOGRAPHIC FINDINGS: There are no suspicious masses, calcifications or architectural distortion in the right breast to suggest malignancy. ULTRASOUND: Complete US of all 4 quadrants of the right breast/s and retroareolar region was reviewed. At 10:00, 6 cm from the nipple there is a 3 mm cyst. No suspicious masses to suggest malignancy. IMPRESSION: 1. No evidence for malignancy in the right breast. 2. Routine yearly screening mammogram and regular clinical breast examination are recommended. BI-RADS Category 2: Benign finding(s). Reviewed, dictated and finalized at location B. MTDD IMPRESSION: 1. No evidence for malignancy in the right breast. 2. Routine yearly screening mammogram and regular clinical breast examination a re recommended. BI-RADS Category 2: Benign finding(s).
== END 2024-09-06 12:42 | disposition home or self-care (01) ==
LOC: ANHIMG 12:42
PROVIDERS: PCP Family Medicine; Visit Provider Nurse Practitioner
DX: R92.8 Other abnormal and inconclusive findings on diagnostic imaging of breast (principal)
CPT/HCPCS: 76641; 77061; 77065; G0279

== ENCOUNTER 2025-05-23 11:23 | Outpatient (CLI) | payer MEDICARE, SELFPAY ==
--- NOTE | ~2025-05-23 | CT_ITS ---
CT abdomen wo con Ordering provider: RUBI Delcid History: 70 years Female with . R10.9 - Unspecified abdominal pain . Comparison: None. Technique: CT abdomen without IV and without oral contrast. Automated exposure control and iterative reconstruction technique were employed. The dose-length product was 221.22 mGy-cm. Findings: VISUALIZED LOWER CHEST: Normal. UPPER ABDOMINAL ORGANS: Liver: Fat infiltration. Gallbladder: Status post cholecystectomy. Spleen: Normal. Stomach/duodenum: Fat stranding is seen between the duodenum and the liver which may indicate duodeni tis. Clinical correlation and follow-up advised. Pancreas: Slightly atrophic. Adrenals: Normal. Kidneys: Normal. BOWEL AND MESENTERY: Colon: No evidence of diverticulitis in the visualized colon. Small Bowel: Normal. No obstruction. Peritoneum/mesentery: No free air or free fluid. No mesenteric lymphadenopathy. RETROPERITONEUM: Mild atheromatous disease of the abdominal aorta. No retroperitoneal lymphadenopat hy. MUSCULOSKELETAL: Superficial soft tissues: The superficial soft tissues are normal. Bones: Age appropriate degenerative changes of the spine. IMPRESSION: 1. Minimal fat stranding between the liver and the duodenum which may indicate duodenitis. Clinical correlation and follow-up advised. Pancreatitis in the area of the head of the pancreas is less likel y. 2. Fat infiltration of the liver. 3. No evidence of diverticulitis or intestinal obstruction. No kidney stones. Reviewed, dictated and finalized at location A. IMPRESSION: 1. Minimal fat stranding between the liver and the duodenum which may indicate duodenitis. Clinical correlation and follow-up advised. Pancreatitis in the ar ea of the head of the pancreas is less likely. 2. Fat infiltration of the liver. 3. No evidence of diverticulitis or intestinal obstruction. No kidney stones.
--- OUTSIDE RECORDS SUMMARY | 2025-05-23 11:53 | XMS_ITS | Referral Summary ---
Author Organization [facility] Address [address] [place] [address] Care Team Providers Care Button Breaker Name Role Phone Trisha Burt DO Primary Care Provider [phone]- [phone] Allergies No known active allergies Social History Tobacco Use Types Packs/Day Years Used Date Smoking Tobacco: Never Assessed Personal Safety Answer Date Recorded Getting School Help Needed Not on file 05/06 Comments Unknown Sex and Gender Information Value Date Recorded Sex Assigned at Not on file Legal Sex Female 8:33 PM [employer] Gender Identity Not on file Sexual Orientation Not on file Last Filed Vital Signs Vital Sign Reading Time Taken Comments Blood Pressure 132/72 04/07/2023 7:34 PM CDT Pulse 52 04/07/2023 7:34 PM CDT Temperature 36.3 C (97.4 F) 04/07/2023 3:56 PM CDT Respiratory Rate 18 04/07/2023 7:34 PM CDT Oxygen Saturation 99% 04/07/2023 7:34 PM CDT Inhaled Oxygen Concentration - - Weight - - Height - - Body Mass Index - - Plan of Treatment Not on file Insurance MEDICARE [facility] Care Teams Button Breaker Relationship Specialty Start Date End Date Trisha Burt DO PCP - General Family Medicine 04/07/23
--- OUTSIDE RECORDS SUMMARY | 2025-05-23 11:53 | XMS_ITS | Clinical Summary ---
Author Organization [facility] Address [address] [place] [address] Care Team Providers Care Oliver Filter Operator Name Role Phone Trisha Burt DO Primary Care Provider [phone]- [phone] Allergies No known active allergies Social History Tobacco Use Types Packs/Day Years Used Date Smoking Tobacco: Never Assessed Personal Safety Answer Date Recorded Getting School Help Needed Not on file 05/06 Comments Unknown Sex and Gender Information Value Date Recorded Sex Assigned at Not on file Legal Sex Female 8:33 PM [employer] Gender Identity Not on file Sexual Orientation [...] Mass Index - - Plan of Treatment Health Maintenance Due Date Last Done Comments Breast Cancer Screening-Mammogram 1955 Colon Cancer Screening-Colonoscopy 1955 Depression Screening 1955 Fall Risk Assessment 1955 Hepatitis C Screening 1955 Osteoporosis Screening-Bone Density Scan 1953 DTaP/Tdap/Td Vaccine (1 - Tdap) 1964 Hepatitis B Screening 1971 Zoster Vaccine (1 of 2) 2003 Well Visit 65+ 2018 Covid-19 Vaccine (2023-2 5 season) 2024 12/04/2021, 02/13/2021, 01/23/2021 Influenza Vaccine (Season Ended) 2025 09/13/2022, 09/19/2021, 09/07/2020, Additional history exists Pneumococcal vaccine 65+ Completed 07/25/2021, 12/25 Insurance MEDICARE [facility] Care Teams Oliver Filter Operator Relationship Specialty Start Date End Date Trisha Burt DO PCP - General Family Medicine 04/07/23
== END 2025-05-23 11:24 | disposition home or self-care (01) ==
PROVIDERS: PCP Family Medicine; Visit Provider Nurse Practitioner
DX: K76.0 Fatty (change of) liver, not elsewhere classified (principal)
CPT/HCPCS: 74150